=== PATIENT | male | born 1985 | race Caucasian/White ===

== ENCOUNTER 2016-06-23 18:09 | Emergency (ER) | payer SELFPAY ==
[~2016-06-23] VITALS: Ht 167.6 cm; Wt 81.6 kg
[2016-06-23 18:29] VITALS: BP 145/77
[2016-06-23 21:00] VITALS: BP 137/68
--- NOTE | 2016-06-23 21:00 | NUR ---
Patient discharged with v/s stable. Written and verbal after care instructions given and explained. Patient alert, oriented and verbalized understanding of instructions. Ambulatory with steady gait. All questions addressed prior to discharge. ID band removed. Patient advised to follow up with PMD. Rx of Clindamycin and [place] given. Patient educated on indication of medication including possible reaction and side effects. Opportunity to ask questions provided and answered.
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
== END 2016-06-23 21:00 | disposition home or self-care (01) ==
LOC: MED 18:09
DX: L02.31 Cutaneous abscess of buttock (principal); R03.0 Elevated blood-pressure reading, without diagnosis of hypertension; S30.860A Insect bite (nonvenomous) of lower back and pelvis, initial encounter; W57.XXXA Bitten or stung by nonvenomous insect and other nonvenomous arthropods, initial encounter; Y93.89 Activity, other specified; Y92.89 Other specified places as the place of occurrence of the external cause; Y99.8 Other external cause status
CPT/HCPCS: 99283

== ENCOUNTER 2020-07-05 05:05 | Inpatient (IN) | payer MEDICAID, SELFPAY ==
[~2020-07-05] VITALS: Ht 165.1 cm; Wt 93.0 kg
[2020-07-05 05:16] VITALS: BP 92/62
--- NOTE | 2020-07-05 05:18 | NUR ---
ERMD AT BEDSIDE FOR EXAMINATION
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
[2020-07-05] MEDS ORDERED: LORazepam 2 MG/ML VIAL IVP ONE (05:25)
[2020-07-05] MEDS ORDERED: NACL 0.9% 1,000 ML IV ONE ×3 (05:25→06:55)
--- NOTE | 2020-07-05 05:58 | NUR ---
PLACED PATIENT ON 2L OF OXYGEN VIA NC. PATIENT O2 SATS AT 88% AND WITH OXYGEN PATIENT IS NOW AT 95%
[2020-07-05 06:08] LABS: ALBUMIN 4.5 g/dL (3.4-5.0); ANION GAP 16.1 (8-16); CARBON DIOXIDE 23.3 mmol/L (21-32); POTASSIUM 3.4 mmol/L (3.5-5.1)
[2020-07-05] MEDS ORDERED: HALOPERIDOL IM 5 MG/ML VIAL IM ONE (06:10)
--- NOTE | 2020-07-05 06:10 | NUR ---
PT CURRENTLY HALLUCINATING SEEING THINGS ON THE FLOOR AND ON THE HUTSON, STARTING TO FEEL LIKE THINGS ARE CRAWLING ON HIM. MD NOTIFIED.
--- NOTE | 2020-07-05 06:27 | NUR ---
CT AT BEDSIDE FOR CHEST XRAY
--- NOTE | 2020-07-05 06:39 | NUR ---
PATIENT GIRLFRIEND CALLED REGARDING UPDATES. IF ANYTHING IS NEEDED IT IS OKAY TO CALL GF. SHANKS #[phone]
--- NOTE | 2020-07-05 06:45 | NUR ---
PATIENT GIVEN PHONE.
--- NOTE | 2020-07-05 07:05 | NUR ---
AGUSTIN COLLECTED SENT TO LAB. RECEIVED BY MARYANA SIMMONS
[2020-07-05 07:09] LABS: CKMB RELATIVE INDEX 0.2 (0.0-2.5); CREATINE KINASE MB 11.5 ng/mL (0-3.6)
--- NOTE | 2020-07-05 07:20 | NUR ---
REPORT GIVEN TO BERNA OROPEZA FOR CONTINUATION OF CARE.
--- NOTE | 2020-07-05 07:24 | NUR ---
REPORT RECEIVED FROM SILVERIO RN FOR CONTINUITY OF CARE
--- NOTE | 2020-07-05 08:07 | NUR ---
RECEIVED REPORT FROM ER NURSE OVER THE PHONE. PATIENT AAOX1-2 WITH OCCASIONAL CONFUSION, DROWSY. IV TO LEFT AC 18G. CC WITH METH OVERDOSE. ON TELE MONITOR. SKIN INTACT. WILL FOLLOW UP.
--- NOTE | 2020-07-05 08:15 | NUR ---
Patient will be admitted to care of DR HARGROVE. Admited to TELEMETRY. Will go to room 107-A. Belongings list completed. Report to CAREY CORONEL.
[2020-07-05 08:25] VITALS: BP 131/81
--- NOTE | 2020-07-05 08:25 | NUR ---
RECEIVED PATIENT FOR CONTINUITY OF CARE. PATIENT ARRIVED UNIT BY RICARDO. AWAKE, BUT DROWSY. AWAKABLE BY VOICE STIMULI, ORIENTED BY NAME AND PLACE ONLY. IV TO LEFT AC 18G. ORIENTED PATIENT TO THE ROOM AND CALL LIGHT. MRSA SWAB COLLECTED. SAFETY MEASURES IN PLACE, WILL CONTINUE TO MONITOR.
[2020-07-05] MEDS: NACL 0.9% 1,000 ML IV SCH ×4 (08:50→23:44)
[2020-07-05] MEDS ORDERED: DOCUSATE SODIUM 100 MG GELCAP PO PRN (10:30)
[2020-07-05] MEDS ORDERED: ACETAMINOPHEN 325 MG TAB PO PRN (10:30)
[2020-07-05] MEDS ORDERED: ONDANSETRON 4 MG/2 ML VIAL IM/IVP PRN (10:30)
[2020-07-05] MEDS ORDERED: MORPHINE SULFATE 2 MG/ML SYR IVP PRN (10:30)
[2020-07-05] MEDS ORDERED: HYDROcodone/APAP 5/325 MG 1 TAB TAB PO PRN (10:30)
[2020-07-05] MEDS ORDERED: ZOLPIDEM 5 MG TAB PO PRN (10:30)
[2020-07-05] MEDS ORDERED: POTASSIUM CHLORIDE 10 MEQ TABER PO PRN (10:30)
[2020-07-05] MEDS ORDERED: MAG SULF 2000 MG/WATER PREMIX 50 ML IV PRN (10:30)
[2020-07-05] MEDS ORDERED: LORazepam 2 MG/ML VIAL IM/IVP PRN (10:30)
--- NOTE | 2020-07-05 10:51 | NUR ---
PATIENT STILL ASLEEP IN BED, VISIBLE CHEST RISE AND FALL, AWAKBLE BY VOICE STIMULI. WILL CONTINUE TO MONITOR.
[2020-07-05 11:02] LABS: BASOPHILS % (AUTO) 0.3 % (0.0-2.0); EOSINOPHILS % (AUTO) 0.2 % (0.0-4.0); HEMATOCRIT 49.4 % (36-52); HEMOGLOBIN 17.4 g/dL (12.0-18.0); LYMPHOCYTES # (AUTO) 1.6 K/uL (2.0-11.5); LYMPHOCYTES % (AUTO) 13.1 % (20.5-51.1); MEAN CORPUSCULAR HEMOGLOBIN 31 pg (27-31); MEAN CORPUSCULAR HGB CONC 35 g/dL (33-37); MEAN CORPUSCULAR VOLUME 86.7 fL (80-94); MONOCYTES # (AUTO) 1.2 K/uL (0.8-1.0); MONOCYTES % (AUTO) 9.9 % (1.7-9.3); NEUTROPHILS # (AUTO) 9.2 K/uL (1.8-7.7); NEUTROPHILS % (AUTO) 76.5 % (42.2-75.2); PLATELET COUNT (AUTO) 364 K/uL (140-450)
[2020-07-05 11:13] LABS: CHOL/HDL RATIO 4.1 (1-4.5); MAGNESIUM 2.2 mg/dL (1.8-2.4); PHOSPHORUS 2.8 mg/dL (2.5-4.9); PROTHROMBIN TIME 12.2 secs (10.8-13.4); THYROID STIMULATING HORMONE 2.95 uIU/mL (0.34-3.74)
[2020-07-05 12:00] VITALS: BP 117/70
--- NOTE | 2020-07-05 15:20 | NUR ---
PATIENT RESTING IN BED, IV INFUSING ORDERED. PATIENT DENIES PAIN AT THIS TIME. WILL CONTINUE TO MONITOR.
--- NOTE | 2020-07-05 15:40 | NUR ---
PATIENT HAS BEEN SCREENED AND CATEGORIZED LOW NUTRITION RISK. PATIENT WILL BE SEEN WITHIN 7 DAYS OF ADMISSION. 07/11/[address]
[2020-07-05 16:00] VITALS: BP 127/72
[2020-07-05] MEDS ORDERED: LACTULOSE 20 GM/30 ML UDC PO SCH (16:00)
--- NOTE | 2020-07-05 16:33 | NUR ---
PATIENT ASLEEP IN BED IN SUPINE POSITION, FACING RIGHT SIDE. VISIBLE CHEST RISE AND FALLS ON ROOM AIR. WILL CONTINUE TO MONITOR.
--- NOTE | 2020-07-05 19:21 | NUR ---
PATIENT ENDORSED BY DAY SHIFT FOR CONTINUITY OF CARE. PATIENT IS ALERT AND ORIENTED X4, SHOWING NO SIGNS OF ACUTE DISTRESS AND REQUESTING NOTHING AT THE TIME. PATIENT IS ON TELE MONITOR SHOWING SINUS RHYTHM. PATIENT IS ON ROOM AIR. PATIENT CHEST RISING AND FALLING UNLABORED. LAST BOWEL MOVEMENT ON THE . PATIENT SKIN INTACT, WITH A LEFT 18GAUGE FOREARM RUNNING NS AT 200 ML/HR. PATIENT IN STABLE CONDITION. SAFETY MEASURES IN PLACE. BED IN LOWEST POSITION. CALL LIGHT WITHIN REACH. WILL CONTINUE TO MONITOR.
--- NOTE | 2020-07-05 19:24 | NUR ---
ENDORSED PATIENT TO GLAZIER SUPERVISOR RN FOR CONTINUITY OF CARE, PATIENT IN STABLE CONDITION ON ROOM AIR.
--- NOTE | 2020-07-05 19:25 | NUR ---
RECEIVED BEDSIDE REPORT DAY RN. PT IS AAOX4. RESPIRATIONS ARE EQUAL AND UNLABORED ON ROOM AIR. LUNG SOUNDS ARE CLEAR. SKIN IS INTACT. COLOR IS VIDYA FOR ETHNICITY. PT IS AMBULATORY AND ABLE TO MAKE NEEDS KNOWN. IV ON L FA 18G IVF INFUSING PER ORDERS. POC REVIEWED WITH PT. PT VERBALIZED UNDERSTANDING. CALL LIGHT IS WITHIN REACH. WILL CONTINUE TO MONITOR.
[2020-07-05 20:00] VITALS: BP 110/68
--- NOTE | 2020-07-05 20:29 | NUR ---
GAVE REPORT TO METALIZING MACHINE OPERATOR AUTOMATIC. PT ENDORSED IN STABLE CONDITION.
--- NOTE | 2020-07-05 20:30 | NUR ---
RECEIVED PT ON BED RESTING, AAOX4, ABLE TO MAKE NEEDS KNOWN, DENIES ANY PAIN OR SOB, NO TREMORS NOTED, IVF INFUSING WELL, SAFETY MEASURES IN PLACE, CALL LIGHT WITHIN REACH
--- NOTE | 2020-07-05 20:52 | NUR ---
DUE HEPARIN SQ GIVEN WITH EDUCATION PROVIDED, RISK AND BENEFITS EXPLAINED, ALL NEEDS ATTENDED.
--- NOTE | 2020-07-05 21:46 | NUR ---
ROUNDED ON PATIENT. PATIENT IS RESTING COMFORTABLY IN BED LAYING ON HIS RIGHT SIDE. CHEST VISIBLY RISING AND FALLING SHOWING NO SIGNS OF ACUTE DISTRESS. CALL LIGHT WITHIN REACH. WILL CONTINUE TO MONITOR.
--- NOTE | 2020-07-05 23:50 | NUR ---
ROUNDED ON PATIENT. PATIENT IS RESTING COMFORTABLY IN BED SHOWING NO SIGNS OF ACUTE DISTRESS. RESPIRATIONS ARE EVEN AND UNLABORED. SAFETY MEASURES IN PLACE, CALL LIGHT WITHIN REACH. WILL CONTINUE TO MONITOR.
[2020-07-06] VITALS: BP 125/69
--- NOTE | 2020-07-06 00:41 | NUR ---
ROUNDED ON PATIENT. PATIENT IS ASLEEP IN BED SHOWING NO SIGNS OF ACUTE DISTRESS. RESPIRATIONS ARE EVEN AND UNLABORED. SAFETY MEASURES IN PLACE, CALL LIGHT WITHIN REACH. WILL CONTINUE TO MONITOR.
--- NOTE | 2020-07-06 02:19 | NUR ---
ROUNDED ON PATIENT. PATIENT NEEDS ARE MET, NO ACUTE DISTRESS NOTED. RESPIRATORY IS EVEN AND UNLABORED ON ROOM AIR. SAFETY MEASURES IN PLACE WILL CONTINUE TO MONITOR.
[2020-07-06 04:00] VITALS: BP 99/60
[2020-07-06] MEDS: NACL 0.9% 1,000 ML IV SCH ×3 (05:30→13:05)
[2020-07-06 05:40] LABS: BARBITURATE, URINE NEGATIVE ng/ml (NEG <=200)
[2020-07-06 05:41] LABS: BENZODIAZEPINE, URINE NEGATIVE ng/mL (NEG <=200); CANNABINOID, URINE NEGATIVE ng/mL (NEG <=50); COCAINE, URINE NEGATIVE ng/mL (NEG <=300); OPIATE, URINE NEGATIVE ng/mL (NEG <=2000); PHENCYCLIDINE SCREEN,URINE NEGATIVE ng/mL (NEG <=25)
[2020-07-06 05:44] LABS: APPEARANCE,URINE CLEAR (CLEAR); BILIRUBIN,URINE NEGATIVE (NEGATIVE); BLOOD, URINE NEGATIVE (NEGATIVE); COLOR,URINE YELLOW (YELLOW); LEUKOCYTE ESTERASE ,URINE NEGATIVE (NEGATIVE); NITRITE, URINE NEGATIVE (NEGATIVE); PH,URINE 6.5 (5.0-9.0); UGLUCOSE NEGATIVE (NEGATIVE)
[2020-07-06 06:54] LABS: ANION GAP 13.4 (8-16); CARBON DIOXIDE 26.5 mmol/L (21-32); CREATININE 0.7 mg/dL (0.6-1.3); POTASSIUM 3.9 mmol/L (3.5-5.1)
[2020-07-06 06:56] LABS: BASOPHILS % (AUTO) 0.3 % (0.0-2.0); EOSINOPHILS # (AUTO) 0.2 K/uL (0-0.4); EOSINOPHILS % (AUTO) 2.3 % (0.0-4.0); HEMATOCRIT 46.2 % (36-52); HEMOGLOBIN 16.1 g/dL (12.0-18.0); LYMPHOCYTES # (AUTO) 2.2 K/uL (2.0-11.5); LYMPHOCYTES % (AUTO) 28.8 % (20.5-51.1); MEAN CORPUSCULAR HEMOGLOBIN 31 pg (27-31); MEAN CORPUSCULAR HGB CONC 35 g/dL (33-37); MEAN CORPUSCULAR VOLUME 87.5 fL (80-94); MONOCYTES # (AUTO) 0.7 K/uL (0.8-1.0); NEUTROPHILS # (AUTO) 4.6 K/uL (1.8-7.7); NEUTROPHILS % (AUTO) 59.6 % (42.2-75.2); PLATELET COUNT (AUTO) 277 K/uL (140-450); RED BLOOD CELL COUNT(AUTO) 5.29 MIL/uL (4.20-6.10); RED CELL DISTRIBUTION WIDTH 13.3 % (11.6-13.7); WHITE BLOOD COUNT (AUTO) 7.8 K/uL (4.8-10.8)
[2020-07-06 06:58] LABS: PHOSPHORUS 2.2 mg/dL (2.5-4.9)
--- NOTE | 2020-07-06 07:30 | NUR ---
PT SLEEPING, EASILY AROUSABLE, NO DISTRESS NOTED, REPORT GIVEN TO RN [place] FOR CONTINUITY OF CARE.
--- NOTE | 2020-07-06 07:30 | NUR ---
RECEIVED REPORT FROM NURSE HEAD RN FOR CONTINUITY OF CARE. PATIENT ASLEEP IN BED IN SUPINE POSITION. BREATHING EVEN UNLABORED ON ROOM AIR. NO S/S OF RESPIRATORY DISTRESS NOTED. IV TO LEFT FOREARM 18G INFUSING IVF NS@ 200ML/HR. SAFETY MEASURES IN PLACE, CALL LIGHT WITHIN REACH, WILL CONTINUE TO MONITOR.
[2020-07-06 08:00] VITALS: BP 109/71
[2020-07-06 08:08] LABS: T4 (THYROXINE) 10.2 ug/dL (4.5-12.0)
[2020-07-06 08:46] LABS: CKMB RELATIVE INDEX 0.2 (0.0-2.5); CREATINE KINASE MB 5.8 ng/mL (0-3.6)
[2020-07-06] MEDS ORDERED: LACTULOSE 20 GM/30 ML UDC PO SCH (09:00)
--- NOTE | 2020-07-06 10:00 | NUR ---
SCHEDULED MEDICATIONS GIVEN, EDUCATION PROVIDED, PATIENT VERBALIZED UNDERSTANDING. INFORMED PATIENT THAT HE IS GOING TO BE DISCHARGE TODAY. THE FAMILY WILL PICK HIM UP AROUND 14:30.
--- NOTE | 2020-07-06 13:10 | NUR ---
PATIENT STATED THAT HE NEED TO GO NOW. DISCHARGE INSTRUCTIONS PROVIDED, DISCHARGE PAPER SIGNED. NO HOME MEDICATIONS OR DISCHARGE PRESCRIPTION NEEDED. PATIENT VERBALIZED UNDERSTANDING OF THE INSTRUCTIONS.
--- NOTE | 2020-07-06 13:25 | NUR ---
WALKED PATIENT OUT OF THE HOSPITAL. DISCHARGE PROTOCOL FOLLOWED. ALL BELONGINGS TAKEN. PATIENT IN STABLE CONDITION.
[2020-07-06] MEDS ORDERED: POTASSIUM PHOSPHATE 15 MM in NACL 0.9% 250 ML IV SCH (13:30)
--- NOTE | 2020-07-06 14:14 | NUR ---
LATE ENTRY -- NS INFUSION COMPLETED AT 0730 07/05/20
== END 2020-07-06 13:15 | disposition home or self-care (01) | DRG 812 ==
LOC: MED 05:05 → MTU 07:08
DX: T43.621A Poisoning by amphetamines, accidental (unintentional), initial encounter (principal); G92 Toxic encephalopathy; M62.82 Rhabdomyolysis; E87.1 Hypo-osmolality and hyponatremia; K72.90 Hepatic failure, unspecified without coma; E83.39 Other disorders of phosphorus metabolism; E86.0 Dehydration; F15.929 Other stimulant use, unspecified with intoxication, unspecified; Z20.822 Contact with and (suspected) exposure to COVID-19; E87.6 Hypokalemia; F15.920 Other stimulant use, unspecified with intoxication, uncomplicated; Y92.89 Other specified places as the place of occurrence of the external cause
CPT/HCPCS: 36415; 71045; 80048; 80053; 80305; 81003; 82140; 82150; 82550; 82553; 83036; 83690; 83735; 83880; 84100; 84134; 84436; 84443; 84484; 85025; 85610; 85730; 87081; 93005; 96361; 96372; 96374; 99291; J1630; J1644; J2060; J7030

== ENCOUNTER 2022-09-23 14:13 | Emergency (ER) | payer MEDICAID | END 2022-09-23 15:00 | disposition left against medical advice (07) | LOC: MED 14:13 | DX: R07.9 Chest pain, unspecified (principal); Z53.21 Procedure and treatment not carried out due to patient leaving prior to being seen by health care provider ==